=== PATIENT | female | born 1995 | race Caucasian/White ===

== ENCOUNTER 2021-02-17 19:33 | Emergency (ER) | payer OTHER ==
[2021-02-17] MEDS ORDERED: Ketorolac Tromethamine 30 MG/ML VIAL ONE (20:40)
== END 2021-02-17 20:45 | disposition home or self-care (01) ==
LOC: CSHERS 19:33
DX: K04.7 Periapical abscess without sinus (principal)
CPT/HCPCS: 96372; 99283; J1885